=== PATIENT | female | born 1975 | race African-American/Black ===

== ENCOUNTER 2024-04-14 22:08 | Emergency (ER) | payer OTHER ==
[2024-04-14 22:15] VITALS: BMI 26.9
[2024-04-14] MEDS: LIDOCAINE PATCH REMOVAL MC SCH (23:07)
[2024-04-14] MEDS ORDERED: ACETAMINOPHEN 325 MG TABLET (FP) ONE (23:08)
[2024-04-14] MEDS ORDERED: IBUPROFEN 600 MG TABLET (FP) PO ONE (23:08)
[2024-04-14] MEDS ORDERED: LIDOCAINE 4% PATCH TP ONE (23:08)
[2024-04-14] MEDS: LIDOCAINE 4% PATCH TP ONE (23:13)
[2024-04-14] MEDS: IBUPROFEN 600 MG TABLET (FP) PO ONE (23:13)
[2024-04-14] MEDS: ACETAMINOPHEN 325 MG TABLET (FP) PO ONE (23:13)
[2024-04-15 01:02] LABS: EPI CELLS >36 /uL (0-25.1); HYALINE CASTS 0 /uL (0-3.1); URINE APPEARANCE CLOUDY; URINE BACTERIA 2517 /uL (0-1359); URINE BILIRUBIN NEGATIVE (NEGATIVE); URINE COLOR YELLOW; URINE GLUCOSE (UA) NEGATIVE (NEGATIVE); URINE KETONE TRACE (NEGATIVE); URINE LEUK ESTERASE NEGATIVE (NEGATIVE); URINE NITRITE NEGATIVE (NEGATIVE); URINE PROTEIN TRACE (NEGATIVE); URINE RBC 14 /uL (0-23.9); URINE UROBILINOGEN 0.2 mg/dL (0.2-1.0); URINE WBC 25 /uL (0-25.8)
[2024-04-15] MEDS ORDERED: CYCLOBENZAPRINE HCL 5 MG TABLET ONE (01:27)
[2024-04-15] MEDS: CYCLOBENZAPRINE HCL 5 MG TABLET PO ONE (01:33)
[2024-04-15 01:34] VITALS: BP 99/64; PULSE 68; RESP 16; TEMP 97.8
== END 2024-04-15 01:34 | disposition home or self-care (01) ==
LOC: JER 22:08
DX: M54.9 Dorsalgia, unspecified (principal); R10.9 Unspecified abdominal pain
CPT/HCPCS: 81003; 87086; 99283-25